=== PATIENT | male | born 1990 | race Hispanic/Latino ===

== ENCOUNTER 2017-07-18 00:48 | Emergency (ER) | payer SELFPAY ==
[2017-07-18 01:46] LABS: APPEARANCE,URINE Clear (CLEAR); BILIRUBIN,URINE Negative (NEGATIVE); COLOR,URINE Yellow (YELLOW); GLUCOSE, URINE (UA) Negative (NEGATIVE); KETONES,URINE Negative (NEGATIVE); LEUKOCYTE ESTERASE ,URINE Negative (NEGATIVE); NITRATE,URINE Negative (NEGATIVE); OCCULT BLOOD,URINE Negative (NEGATIVE); PROTEIN,URINE Negative (NEGATIVE)
== END 2017-07-18 02:10 | disposition home or self-care (01) ==
LOC: EDH 00:48
DX: J30.9 Allergic rhinitis, unspecified (principal); M54.89 Other dorsalgia; Z98.890 Other specified postprocedural states
CPT/HCPCS: 81003

== ENCOUNTER 2018-02-28 03:00 | Emergency (ER) | payer OTHER | END 2018-02-28 03:52 | disposition home or self-care (01) | LOC: EDH 03:00 | DX: J06.9 Acute upper respiratory infection, unspecified (principal); B34.9 Viral infection, unspecified | CPT/HCPCS: 99281 ==

== ENCOUNTER 2022-10-20 21:52 | Emergency (ER) | payer BC, OTHER ==
[~2022-10-20] VITALS: Ht 177.8 cm; Wt 107.0 kg
[2022-10-20] MEDS ORDERED: FAMOTIDINE 20MG VIAL IV ONE (22:30)
[2022-10-20] MEDS ORDERED: EPINEPHRINE PF 1MG (1:1,000) 1 MG/ML AMP IM ONE (22:30)
[2022-10-20] MEDS ORDERED: DEXAMETHASONE SOD PHOSPHATE 4 MG/ML 1ML VIAL IVP ONE (22:30)
[2022-10-20] MEDS ORDERED: DiphenhydrAMINE HCL 50 MG/ML VIAL IV ONE (22:30)
[2022-10-20] MEDS ORDERED: PREDNISONE 20 MG TABLET PO ONE (23:00)
[2022-10-20] MEDS ORDERED: DIPHENHYDRAMINE HCL 25 MG CAPSULE PO ONE (23:00)
[2022-10-20] MEDS ORDERED: FAMOTIDINE 20MG TAB PO ONE (23:00)
[2022-10-20 23:21] VITALS: BP 132/90
[2022-10-20] MEDS ORDERED: PRED20TA3 PO (23:31)
== END 2022-10-20 23:37 | disposition home or self-care (01) ==
LOC: EDH 21:52
DX: L25.9 Unspecified contact dermatitis, unspecified cause (principal); J45.909 Unspecified asthma, uncomplicated
CPT/HCPCS: 99284; Q0163